=== PATIENT | male | born 1980 | race Caucasian/White ===

== ENCOUNTER 2017-02-12 21:48 | Emergency (ER) | payer OTHER ==
[~2017-02-12] VITALS: Ht 165.1 cm; Wt 90.0 kg
[~2017-02-12 21:48] MED LIST: BACLOFEN20 MG PO; BACTRIM,SEPT1 TABLET PO; BENADRYL25 MG PO; BENADRYL50 MG PO; GABAPENTIN600 MG PO; MILK OF MAGN PO; MINIPRESS2 MG PO; MIRALAX17 GM PO; MOTRIN800 MG PO; NOHOMEMEDS; PERPHENAZINE4 MG PO; TYLENOL EXTRA500 MG PO; ULTRAM50 MG PO; [UNRECOGNIZED DRUG - CODE]
[2017-02-12 22:26] LABS: EOSINOPHIL (%) 1.6 % (0-5); EOSINOPHIL COUNT 0.2 K/uL (0-0.3); HEMATOCRIT 39.2 % (38.0-50.0); IMMATURE GRANULOCYTE (%) 0.1 % (0.0-0.7); INSTRUMENT ABS NEUTROPHIL CT 5.7 K/uL; LYMPHOCYTE COUNT 2.8 K/uL (1.0-2.8); MCH 30.5 PG (29.0-34.0); MCHC 34.2 G/DL (30.0-36.0); MCV 89.1 FL (86-99); MEAN PLAT.VOLUME 9.1 uM^3 (9.0-12.4); MONOCYTE (%) 7.9 % (3-12); MONOCYTE COUNT 0.8 K/uL (0-0.8); NEUTROPHIL (%) 60.3 % (45-76); NEUTROPHIL COUNT 5.7 K/uL (1.8-6.4); PLATELET COUNT 241 K/uL (156-360); RBC DIS.WIDTH-CV 11.9 % (11.8-14.6); RBC DIS.WIDTH-SD 38.8 % (39-53); WHITE BLOOD COUNT 9.5 K/uL (4.1-10.2)
[2017-02-12 22:30] LABS: ADD MIUA? NO; BILIRUBIN NEGATIVE; BLOOD NEGATIVE; COLOR STRAW ((YELLOW)); GLUCOSE (STRIP) NEGATIVE; KETONES NEGATIVE; LEUKOCYTES NEGATIVE; NITRITE NEGATIVE; PROTEIN (STRIP) NEGATIVE; SPECIFIC GRAVITY 1.009 (1.000-1.030); UCUL ADDED? NO; UROBILINOGEN 0.2 MG/DL (0.2-1.0)
[2017-02-12 22:35] LABS: CHLORIDE 106 mEq/L (99-109); POTASSIUM 3.9 mEq/L (3.7-5.4); SODIUM 140 mEq/L (136-147)
[2017-02-12 22:37] LABS: GLUCOSE 105 mg/dL (70-99)
[2017-02-12 22:38] LABS: ANION GAP 11 MEQ/L (2-14)
[2017-02-12 22:39] LABS: TOTAL BILIRUBIN 0.2 mg/dL (0.0-1.0)
[2017-02-12 22:40] LABS: ALKALINE PHOSPHATASE 47 IU/L (3-129)
[2017-02-12 22:41] LABS: GFR ESTIMATE (CALCULATED) > 59 mL/min/
[2017-02-12 22:42] LABS: UREA NITROGEN (BUN) 11 mg/dL (9-23)
[2017-02-12 22:44] LABS: LIPASE 14 U/L (1.0-51.0)
[2017-02-12 22:46] LABS: TROP-I INTERPRETATION NEGATIVE; TROPONIN-I < 0.01 ng/mL (0.0-0.30)
[2017-02-13 01:18] LABS: D-DIMER ELISA 0.21 mg/L FEU (< 0.57)
[2017-02-13 03:21] VITALS: BP 121/75
== END 2017-02-13 03:23 ==
LOC: EME → EDBD 21:48 → EME 21:48
PROVIDERS: Emergency Medicine
DX: R10.11 Right upper quadrant pain (principal); G89.4 Chronic pain syndrome; M54.9 Dorsalgia, unspecified; R11.0 Nausea; R00.0 Tachycardia, unspecified; I10 Essential (primary) hypertension
CPT/HCPCS: 71010; 74177; 76705; 80053; 81003; 83605; 83690; 84484; 85025; 85027; 85379; 87040; 93005; 99281; 99285; C9113; J1885; J2270; J2405; J3010; J7030

== ENCOUNTER 2017-02-16 14:34 | Emergency (ER) | payer OTHER ==
[~2017-02-16] VITALS: Ht 175.3 cm; Wt 89.2 kg
[2017-02-16 15:39] LABS: HEMATOCRIT 41.1 % (38.0-50.0); MCH 30.6 PG (29.0-34.0); MCHC 34.3 G/DL (30.0-36.0); MCV 89.2 FL (86-99); MEAN PLAT.VOLUME 8.8 uM^3 (9.0-12.4); PLATELET COUNT 253 K/uL (156-360); RBC DIS.WIDTH-CV 11.9 % (11.8-14.6); RBC DIS.WIDTH-SD 38.6 % (39-53); RED BLOOD COUNT 4.61 M/uL (4.00-5.50); WHITE BLOOD COUNT 9.2 K/uL (4.1-10.2)
[2017-02-16 15:42] LABS: ADD MIUA? NO; BILIRUBIN NEGATIVE; BLOOD NEGATIVE; COLOR COLORLESS ((YELLOW)); GLUCOSE (STRIP) NEGATIVE; KETONES NEGATIVE; LEUKOCYTES NEGATIVE; NITRITE NEGATIVE; PROTEIN (STRIP) NEGATIVE; SPECIFIC GRAVITY 1.003 (1.000-1.030); UROBILINOGEN 0.2 MG/DL (0.2-1.0)
[2017-02-16 15:48] LABS: CHLORIDE 108 mEq/L (99-109); POTASSIUM 4.2 mEq/L (3.7-5.4); SODIUM 143 mEq/L (136-147)
[2017-02-16 15:49] LABS: AMYLASE 27 IU/L (1-118)
[2017-02-16 15:50] LABS: GLUCOSE 96 mg/dL (70-99)
[2017-02-16 15:51] LABS: ANION GAP 11 MEQ/L (2-14)
[2017-02-16 15:53] LABS: TOTAL BILIRUBIN 0.5 mg/dL (0.0-1.0)
[2017-02-16 15:54] LABS: ALKALINE PHOSPHATASE 51 IU/L (3-129); GFR ESTIMATE (CALCULATED) > 59 mL/min/
[2017-02-16 15:55] LABS: UREA NITROGEN (BUN) 14 mg/dL (9-23)
[2017-02-16 15:57] LABS: LIPASE 4 U/L (1.0-51.0)
[2017-02-16 16:09] LABS: AMPHETAMINE NEGATIVE (500 ng/mL); BARBITURATES NEGATIVE (200 ng/mL); BENZODIAZEPINES NEGATIVE (150 ng/mL); COCAINE NEGATIVE (150 ng/mL); INTERNAL CONTROLS VALID? YES; METHADONE NEGATIVE (200 ng/mL); METHAMPHETAMINE NEGATIVE (500 ng/mL); OPIATES (MORPHINE) PRESUMPTIVE POSITIVE (100 ng/mL); OXYCODONE NEGATIVE (100 ng/mL); PHENCYCLIDINE NEGATIVE (25 ng/mL); PROPOXYPHENE NEGATIVE (300 ng/mL); THC CANNABINOIDS NEGATIVE (50 ng/mL); TRICYCLIC ANTIDEPRESSANTS NEGATIVE (300 ng/mL)
[2017-02-16 16:10] LABS: ADD MEDTOX COMMENT Y
[2017-02-16 20:11] VITALS: BP 145/67
== END 2017-02-16 19:51 ==
LOC: EME 14:34
PROVIDERS: Physician Assistant
DX: R10.10 Upper abdominal pain, unspecified (principal); I10 Essential (primary) hypertension
CPT/HCPCS: 71020; 74176; 80053; 81003; 82150; 83605; 83690; 84999; 85027; 99281; 99285; J2405; J3010; J7030; J7050

== ENCOUNTER 2017-02-16 21:49 | Emergency (ER) | payer OTHER ==
[~2017-02-16] VITALS: Ht 175.3 cm; Wt 88.6 kg
[2017-02-16 22:26] LABS: HEMATOCRIT 38.9 % (38.0-50.0); MCH 30.4 PG (29.0-34.0); MCHC 34.2 G/DL (30.0-36.0); MEAN PLAT.VOLUME 8.8 uM^3 (9.0-12.4); PLATELET COUNT 241 K/uL (156-360); RBC DIS.WIDTH-CV 11.9 % (11.8-14.6); RBC DIS.WIDTH-SD 38.5 % (39-53); RED BLOOD COUNT 4.37 M/uL (4.00-5.50)
[2017-02-16 22:34] LABS: CHLORIDE 105 mEq/L (99-109); SODIUM 141 mEq/L (136-147)
[2017-02-16 22:36] LABS: GLUCOSE 88 mg/dL (70-99)
[2017-02-16 22:37] LABS: ANION GAP 10 MEQ/L (2-14)
[2017-02-16 22:38] LABS: TOTAL BILIRUBIN 0.6 mg/dL (0.0-1.0)
[2017-02-16 22:40] LABS: ALKALINE PHOSPHATASE 49 IU/L (3-129); GFR ESTIMATE (CALCULATED) > 59 mL/min/
[2017-02-16 22:41] LABS: UREA NITROGEN (BUN) 13 mg/dL (9-23)
[2017-02-16 22:43] LABS: LIPASE 4 U/L (1.0-51.0)
[2017-02-17 02:24] LABS: ADD MIUA? NO; BILIRUBIN NEGATIVE; BLOOD NEGATIVE; COLOR YELLOW ((YELLOW)); GLUCOSE (STRIP) NEGATIVE; KETONES NEGATIVE; LEUKOCYTES NEGATIVE; NITRITE NEGATIVE; PROTEIN (STRIP) NEGATIVE; SPECIFIC GRAVITY 1.018 (1.000-1.030); UCUL ADDED? NO; UROBILINOGEN 0.2 MG/DL (0.2-1.0)
[2017-02-17 05:50] VITALS: BP 136/69
== END 2017-02-17 05:51 | disposition short-term general hospital (02) ==
LOC: EME → EDBD 21:49 → EME 21:49
PROVIDERS: Emergency Medicine
DX: R10.11 Right upper quadrant pain (principal); M54.6 Pain in thoracic spine; R00.0 Tachycardia, unspecified; I10 Essential (primary) hypertension; M54.30 Sciatica, unspecified side
CPT/HCPCS: 80053; 81003; 83605; 83690; 85027; 99281; 99285; J1170; J2250; J3010; J7030; J7050

== ENCOUNTER 2017-07-19 14:04 | Emergency (ER) | payer OTHER ==
[~2017-07-19] VITALS: Ht 175.3 cm; Wt 104.0 kg
[2017-07-19 15:26] LABS: MCH 30.7 PG (29.0-34.0); MCHC 35.4 G/DL (30.0-36.0); MCV 86.6 FL (86-99); MEAN PLAT.VOLUME 9.1 uM^3 (9.0-12.4); PLATELET COUNT 208 K/uL (156-360); RBC DIS.WIDTH-CV 11.7 % (11.8-14.6); RBC DIS.WIDTH-SD 37.2 % (39-53); RED BLOOD COUNT 4.04 M/uL (4.00-5.50); WHITE BLOOD COUNT 6.9 K/uL (4.1-10.2)
[2017-07-19 15:38] LABS: CHLORIDE 103 mEq/L (99-109); POTASSIUM 4.4 mEq/L (3.7-5.4); SODIUM 138 mEq/L (136-147)
[2017-07-19 15:40] LABS: GLUCOSE 87 mg/dL (70-99)
[2017-07-19 15:41] LABS: ANION GAP 10 MEQ/L (2-14)
[2017-07-19 15:44] LABS: GFR ESTIMATE (CALCULATED) > 59 mL/min/; UREA NITROGEN (BUN) 5 mg/dL (9-23)
[2017-07-19 16:13] LABS: ADD MIUA? YES; BILIRUBIN NEGATIVE; BLOOD SMALL; COLOR STRAW ((YELLOW)); GLUCOSE (STRIP) NEGATIVE; KETONES NEGATIVE; LEUKOCYTES TRACE; NITRITE NEGATIVE; PROTEIN (STRIP) NEGATIVE; SPECIFIC GRAVITY 1.002 (1.000-1.030); UROBILINOGEN 0.2 MG/DL (0.2-1.0)
[2017-07-19 16:14] LABS: TOTAL BILIRUBIN 0.4 mg/dL (0.0-1.0)
[2017-07-19 16:15] LABS: ALKALINE PHOSPHATASE 50 IU/L (3-129)
[2017-07-19 16:18] LABS: DIRECT BILIRUBIN 0.1 mg/dL (0.0-0.3)
[2017-07-19 16:19] LABS: LIPASE 3 U/L (1.0-51.0)
[2017-07-19 16:19] LABS: BACTERIA NONE SEEN /HPF; EPITHELIAL CELLS NONE SEEN /HPF; MUCUS NONE SEEN /LPF; RED BLOOD CELLS 0-5 /HPF (0-5); UCUL ADDED? NO; WHITE BLOOD CELLS 0-5 /HPF (0-5)
[2017-07-19 19:13] VITALS: BP 128/105
== END 2017-07-19 19:18 | disposition short-term general hospital (02) ==
LOC: EME 14:04
PROC: 0T9B70Z Drainage of Bladder with Drainage Device, Via Natural or Artificial Opening (ICD-10-PCS; principal; 2017-07-19)
DX: R10.84 Generalized abdominal pain (principal); N32.89 Other specified disorders of bladder; R33.9 Retention of urine, unspecified; R31.9 Hematuria, unspecified; R11.0 Nausea; Z87.442 Personal history of urinary calculi; I10 Essential (primary) hypertension
CPT/HCPCS: 74176; 80048; 80076; 81003; 83605; 83690; 85027; 87040; 99281; 99285; J2270; J3010; J7030

== ENCOUNTER 2018-02-19 23:39 | Emergency (ER) | payer OTHER ==
[~2018-02-19] VITALS: Ht 175.3 cm; Wt 92.9 kg
[2018-02-20 01:45] VITALS: BP 129/83
== END 2018-02-20 01:46 ==
LOC: EME → TRA 23:39 → EME 23:39 → EDBD 23:39 → TRA 02-20 01:46
DX: S20.229A Contusion of unspecified back wall of thorax, initial encounter (principal); S06.0X9A Concussion with loss of consciousness of unspecified duration, initial encounter; W17.89XA Other fall from one level to another, initial encounter; Y93.E9 Activity, other interior property and clothing maintenance; Y92.142 Bathroom in prison as the place of occurrence of the external cause; I10 Essential (primary) hypertension; G89.29 Other chronic pain; Z90.49 Acquired absence of other specified parts of digestive tract; Z98.890 Other specified postprocedural states; Z91.013 Allergy to seafood; Z91.041 Radiographic dye allergy status
CPT/HCPCS: 70450; 71250; 72125; 72128; 72131; 74176; 93005; 99281; 99284; J1885